=== PATIENT | female | born 1950 | race Caucasian/White ===

== ENCOUNTER 2024-07-28 12:18 | Inpatient (IN) | payer MEDICARE ==
[2024-07-28] VITALS (39 sets, daily range): BP systolic 100–191; BP diastolic 42–103; PULSE 62–126; RESP 10–28; TEMP 97.8–98.2; O2SAT 89–99
[~2024-07-28] VITALS: Ht 160 cm; Wt 84.4 kg
[2024-07-28 13:34] LABS: BASOPHIL % 0.2 % (0.1-1.2); EOSINOPHIL % 0.6 % (0.0-5.0); HEMATOCRIT(ML) 45.7 % (36.0-46.0); LYMPHOCYTES # 0.91 10^3/uL1 (1.0-4.8); LYMPHOCYTES % 16.9 % (24.0-44.0); MEAN CORP HGB 32.1 pg (26-34); MEAN CORP HGB CONCENTRATION 30.6 g/dL (33-36.5); MEAN CORP VOLUME 104.8 fL (78-100); MONOCYTES # 0.5 10^3/uL (0.3-0.8); MONOCYTES % 9.3 % (5.0-12.0); NEUTROPHIL # 3.9 10^3/uL (1.8-7.7); NEUTROPHILS % 72.6 % (41.0-85.0); PLATELET COUNT 140 10^3/uL (150-400); RED BLOOD CELL 4.36 10^6/uL (4.00-5.20); RED CELL DISTRIBUTION WIDTH 14.7 % (11.5-14.5); WHITE BLOOD CELL 5.4 10^3/uL (4.5-11.0)
[2024-07-28 13:36] LABS: +ADD MANUAL DIFF(NO CHRG) NO
[2024-07-28] MEDS ORDERED: LOPRESSER ONE ×2 (13:55→14:51)
[2024-07-28] MEDS ORDERED: LANOXIN ONE ×2 (13:55→14:51)
[2024-07-28] MEDS: LANOXIN IV SCH (14:06)
[2024-07-28] MEDS: LOPRESSER IVP STA ×2 (14:06→14:59)
[2024-07-28 14:07] LABS: ALBUMIN(ML) 3.3 g/dL (3.4-5.0); ALBUMIN/GLOBULIN RATIO 1.137; ANION GAP 8.3; BUN/CREATININE RATIO 22.22 (10.0-20.0); C-REACTIVE PROTEIN 0.78 mg/dL (0.00-5.00); CALCIUM 8.8 mg/dL (8.4-10.5); CARBON DIOXIDE 29.9 mmol/L (20.0-32); CREATININE SERUM 1.35 mg/dL (0.59-1.40); EST GFR, NON-AA 38.3 (>/=60); POTASSIUM 4.2 mmol/L (3.6-5.2)
[2024-07-28] MEDS: LANOXIN IV STA (14:59)
[2024-07-28] MEDS ORDERED: CARDIZEM ONE (16:30)
[2024-07-28] MEDS ORDERED: NS 100ML 100 ML IV ONE (16:30)
[2024-07-28] MEDS ORDERED: LOVENOX SQ ONE (16:30)
[2024-07-28] MEDS: LOVENOX SQ STA (16:35)
[2024-07-28] MEDS: CARDIZEM IV STA (16:35)
[2024-07-28] MEDS: CARDIZEM 125 MG in NS 100ML 100 ML IV STA (16:39)
[2024-07-28 18:14] LABS: BILIRUBIN,URINE NEGATIVE (NEGATIVE); LEUKOCYTE ESTERASE ,URINE NEGATIVE (NEGATIVE); NITRATE,URINE NEGATIVE (NEGATIVE); UROBILINOGEN,URINE 0.2 E.U./dL (0.2)
[2024-07-28 18:16] LABS: APPEARANCE,URINE CLEAR; UA COLOR YELLOW
[2024-07-28] MEDS ORDERED: ZOFRAN IV PRN (18:30)
[2024-07-28] MEDS ORDERED: MELATONIN PO PRN (18:30)
[2024-07-28] MEDS: LASIX IV STA (18:30)
[2024-07-28 18:42] LABS: HYALINE CASTS, URINE FEW (NONE SEEN)
[2024-07-28] MEDS ORDERED: LIPITOR ONE (20:06)
[2024-07-28] MEDS: LOPRESSER PO SCH (20:11)
[2024-07-28] MEDS: HEPARIN SQ SCH (20:14)
[2024-07-28] MEDS: LIPITOR PO SCH (20:19)
[2024-07-28] MEDS: LASIX IV SCH (20:25)
[2024-07-28] MEDS ORDERED: LIPITOR PO SCH (21:00)
[2024-07-29] VITALS (103 sets, daily range): BP systolic 103–173; BP diastolic 38–99; PULSE 60–84; RESP 5–34; TEMP 97–98.4; O2SAT 84–100
[2024-07-29 04:40] LABS: HEMATOCRIT(ML) 44.7 % (36.0-46.0); MEAN CORP HGB CONCENTRATION 31.3 g/dL (33-36.5); MEAN CORP VOLUME 105.4 fL (78-100); RED BLOOD CELL 4.24 10^6/uL (4.00-5.20); RED CELL DISTRIBUTION WIDTH 14.6 % (11.5-14.5); WHITE BLOOD CELL 3.9 10^3/uL (4.5-11.0)
[2024-07-29 04:56] LABS: ALBUMIN(ML) 3.1 g/dL (3.4-5.0); ALBUMIN/GLOBULIN RATIO 1.192; ANION GAP 5.7; BUN/CREATININE RATIO 21.09 (10.0-20.0); CALCIUM 8.9 mg/dL (8.4-10.5); CARBON DIOXIDE 35.2 mmol/L (20.0-32); CREATININE SERUM 1.28 mg/dL (0.59-1.40); EST GFR, NON-AA 40.8 (>/=60); POTASSIUM 3.9 mmol/L (3.6-5.2)
[2024-07-29] MEDS: PEPCID PO SCH (08:18)
[2024-07-29] MEDS: COZAAR PO SCH (08:18)
[2024-07-29] MEDS: ASPIRIN EC PO SCH (08:20)
[2024-07-29] MEDS ORDERED: APRESOLINE IV PRN (23:00)
[2024-07-30] VITALS (101 sets, daily range): BP systolic 87–168; BP diastolic 40–102; PULSE 60–96; RESP 12–30; TEMP 97.1–97.9; O2SAT 70–100
[2024-07-30 05:10] LABS: +ADD MANUAL DIFF(NO CHRG) NO; BASOPHIL % 0.3 % (0.1-1.2); HEMATOCRIT(ML) 45.1 % (36.0-46.0); HEMOGLOBIN 13.5 g/dL (12.0-15.0); LYMPHOCYTES # 1.07 10^3/uL1 (1.0-4.8); MEAN CORP HGB 32.2 pg (26-34); MEAN CORP HGB CONCENTRATION 29.9 g/dL (33-36.5); MEAN CORP VOLUME 107.6 fL (78-100); MONOCYTES # 0.5 10^3/uL (0.3-0.8); MONOCYTES % 13.6 % (5.0-12.0); NEUTROPHIL # 2.3 10^3/uL (1.8-7.7); NEUTROPHILS % 58.1 % (41.0-85.0); PLATELET COUNT 128 10^3/uL (150-400); RED BLOOD CELL 4.19 10^6/uL (4.00-5.20); RED CELL DISTRIBUTION WIDTH 14.4 % (11.5-14.5)
[2024-07-30 05:23] LABS: INR 1.2; PROTHROMBIN PROTIME 11.9 SEC (9.3-11.6)
[2024-07-30 05:29] LABS: ALBUMIN(ML) 2.8 g/dL (3.4-5.0); ALBUMIN/GLOBULIN RATIO 1.076; ANION GAP 1.2; BUN/CREATININE RATIO 20.58 (10.0-20.0); CALCIUM 7.8 mg/dL (8.4-10.5); CREATININE SERUM 1.36 mg/dL (0.59-1.40); POTASSIUM 3.6 mmol/L (3.6-5.2)
[2024-07-30 06:24] LABS: CARBON DIOXIDE 42.4 mmol/L (20.0-32)
[2024-07-30] MEDS: LASIX PO SCH (08:32)
[2024-07-30] MEDS: MORPHINE SULFATE IV ONE (19:03)
[2024-07-30] MEDS ORDERED: MORPHINE SULFATE IV PRN (19:30)
[2024-07-30] MEDS: ELIQUIS PO SCH (20:01)
[2024-07-31] VITALS (42 sets, daily range): BP systolic 85–146; BP diastolic 36–93; PULSE 55–94; RESP 12–25; TEMP 98.4–99.2; O2SAT 79–100
[2024-07-31 06:10] LABS: +ADD MANUAL DIFF(NO CHRG) NO; BASOPHIL % 0.2 % (0.1-1.2); EOSINOPHIL % 0.9 % (0.0-5.0); HEMOGLOBIN 13.8 g/dL (12.0-15.0); LYMPHOCYTES # 0.91 10^3/uL1 (1.0-4.8); MEAN CORP HGB 32.2 pg (26-34); MEAN CORP VOLUME 107.5 fL (78-100); MONOCYTES # 0.6 10^3/uL (0.3-0.8); MONOCYTES % 14.1 % (5.0-12.0); NEUTROPHIL # 2.9 10^3/uL (1.8-7.7); NEUTROPHILS % 64.6 % (41.0-85.0); PLATELET COUNT 123 10^3/uL (150-400); RED BLOOD CELL 4.28 10^6/uL (4.00-5.20); RED CELL DISTRIBUTION WIDTH 14.4 % (11.5-14.5); WHITE BLOOD CELL 4.6 10^3/uL (4.5-11.0)
[2024-07-31] MEDS: ULTRAM PO PRN (06:44)
[2024-07-31 06:45] LABS: ALBUMIN(ML) 2.8 g/dL (3.4-5.0); ALBUMIN/GLOBULIN RATIO 1.12; ANION GAP 6.6; BUN/CREATININE RATIO 21.77 (10.0-20.0); CALCIUM 8.1 mg/dL (8.4-10.5); CREATININE SERUM 1.24 mg/dL (0.59-1.40); EST GFR, NON-AA 42.3 (>/=60); POTASSIUM 3.7 mmol/L (3.6-5.2)
[2024-07-31 06:53] LABS: CARBON DIOXIDE 40.1 mmol/L (20.0-32)
[2024-07-31] MEDS ORDERED: AUGMENTIN 875MG ONE (16:25)
[2024-07-31] MEDS ORDERED: PEPCID ONE (16:25)
[2024-07-31] MEDS: AUGMENTIN 875MG PO SCH (16:27)
[2024-08-01] VITALS (7 sets, daily range): BP systolic 91–122; BP diastolic 58–76; PULSE 50–91; RESP 16–19; TEMP 96.8–97.8; O2SAT 94–97
[2024-08-01 06:05] LABS: BASOPHIL % 0.2 % (0.1-1.2); HEMATOCRIT(ML) 46.5 % (36.0-46.0); HEMOGLOBIN 13.8 g/dL (12.0-15.0); IG % 0.2 % (0.00-0.50); LYMPHOCYTES # 0.67 10^3/uL1 (1.0-4.8); LYMPHOCYTES % 16.5 % (24.0-44.0); MEAN CORP HGB 31.9 pg (26-34); MEAN CORP HGB CONCENTRATION 29.7 g/dL (33-36.5); MEAN CORP VOLUME 107.4 fL (78-100); MONOCYTES # 0.7 10^3/uL (0.3-0.8); NEUTROPHIL # 2.7 10^3/uL (1.8-7.7); NEUTROPHILS % 66.1 % (41.0-85.0); RED BLOOD CELL 4.33 10^6/uL (4.00-5.20); RED CELL DISTRIBUTION WIDTH 14.5 % (11.5-14.5); WHITE BLOOD CELL 4.1 10^3/uL (4.5-11.0)
[2024-08-01 06:50] LABS: ALBUMIN(ML) 2.6 g/dL (3.4-5.0); CALCIUM 8.3 mg/dL (8.4-10.5); POTASSIUM 3.5 mmol/L (3.6-5.2)
[2024-08-01 07:17] LABS: ANION GAP 2.4; CREATININE SERUM 1.25 mg/dL (0.59-1.40)
[2024-08-01 07:18] LABS: ALBUMIN/GLOBULIN RATIO 0.962; EST GFR, NON-AA 41.9 (>/=60)
[2024-08-01 07:21] LABS: CARBON DIOXIDE 41.1 mmol/L (20.0-32)
[2024-08-01] MEDS ORDERED: FAMO20TA5 PO (13:21)
[2024-08-01] MEDS ORDERED: AMOX1TAB12 PO (13:21)
[2024-08-01] MEDS ORDERED: ATOR20TA PO (13:21)
[2024-08-01] MEDS ORDERED: LOSA-400 PO (13:21)
[2024-08-01] MEDS ORDERED: APIX5TAB PO (13:21)
[2024-08-01] MEDS ORDERED: METO25TA4 PO (13:21)
[2024-08-01] MEDS ORDERED: ASPI-1007 PO (13:21)
[2024-08-01] MEDS ORDERED: FURO40TA4 PO (13:21)
[2024-08-01] MEDS ORDERED: ENTRESTO 24 MG-26 MG TABLET PO SCH (21:00)
[2024-08-01] MEDS ORDERED: ELIQUIS PO SCH (21:00)
[2024-08-02] MEDS ORDERED: TOPROL XL PO SCH (09:00)
== END 2024-08-01 15:35 | DRG 291 ==
LOC: ER 12:18 → ICU 16:25 → MS 07-31 16:36
PROVIDERS: ADMIT Internal Medicine; ATTEND Internal Medicine
DX: I11.0 Hypertensive heart disease with heart failure (principal); I50.21 Acute systolic (congestive) heart failure; I48.91 Unspecified atrial fibrillation; D69.6 Thrombocytopenia, unspecified; Z95.0 Presence of cardiac pacemaker; Z79.899 Other long term (current) drug therapy
CPT/HCPCS: 36415; 71045; 71275; 73701; 73706; 80053; 80061; 81001; 83605; 83735; 83880; 84145; 84484; 85025; 85027; 85379; 85610; 85651; 85730; 86140; 87077; 87086; 87186; 93005; 93306; 97161; 97166; 99285; G0378; J1160; J1644; J1650; J1940; J3490; J8499; Q9965

== ENCOUNTER 2024-07-28 12:18 | Emergency (ER) | payer SELFPAY | END 2024-07-28 16:25 | disposition admitted as inpatient to this hospital (09) | LOC: ER 12:18 | DX: I48.91 Unspecified atrial fibrillation (principal); I50.9 Heart failure, unspecified | CPT/HCPCS: 99285; 71275; 71045; 73701; 80053; 85025; 36415; 85379; 84484; 83605; 84145; 83880; 85651; 86140; 93005; J1160 ×2; J3490 ×2; Q9965 ==